=== PATIENT | female | born 1995 | race African-American/Black ===

== ENCOUNTER → 2018-07-02 | Outpatient (CLI) | payer BC ==
--- NOTE | 2018-07-02 16:26 | KCIC ---
EXAM: Chest, 2 views. HISTORY: Respiratory tuberculosis screening. COMPARISON: None. FINDINGS: 2 views of the chest are obtained. There is no infiltrate, pleural effusion or pneumothorax. The heart is normal in size. IMPRESSION: No acute pulmonary finding or evidence of active pulmonary tuberculosis. Electronically signed by: Christy Curtis MD (07/02/2018 4:22 PM) [facility]
== END | disposition home or self-care (01) ==
LOC: KCIC 12:01
PROVIDERS: ATTEND Nurse Practitioner Family
DX: Z11.1 Encounter for screening for respiratory tuberculosis (principal)
CPT/HCPCS: 71046

== ENCOUNTER → 2019-03-09 | Outpatient (CLI) | payer BC ==
--- NOTE | 2019-03-09 14:06 | KCIC ---
PELVIS W/TV History: Menorrhagia Comparison: None. Findings: Multiple transabdominal sonographic images of pelvis are submitted. Uterus measured 7.4 x 3.4 cm. Endometrium measured about 0.3 cm in thickness. There is somewhat round area of echogenicity in the region of cervix about 2.9 x 2 x 1.8 cm in size. Right ovary measured 2.8 x 1.3 x 2.4 cm, normal low resistance vascularity. Left ovary measured 3.3 x 1.4 cm with normal low resistance vascularity. No free fluid is demonstrated. Transvaginal ultrasound: Multiple transvaginal sonographic images of pelvis are submitted. Uterus measured about 7.7 x 3.2 x 4.2 cm. Endometrium is thin at 0.2 cm. Previously suggested area of round echogenicity of the cervix is not demonstrated. Neither ovary is visualized on this portion of exam. Impression: 1. On transabdominal imaging, there is suggestion of a round area of abnormal echogenicity of the cervix although not seen on the transvaginal images. Correlation with visual inspection is advised. Otherwise no significant abnormality is demonstrated. Electronically signed by: German Leiva MD (03/09/2019 2:03 PM) [id number]
== END | disposition home or self-care (01) ==
LOC: KCIC US 09:06
PROVIDERS: ATTEND Nurse Practitioner Family
DX: N92.0 Excessive and frequent menstruation with regular cycle (principal)
CPT/HCPCS: 76830; 76856